=== PATIENT | male | born 1980 | race Caucasian/White ===

== ENCOUNTER 2017-08-27 14:20 | Emergency (ER) | payer SELFPAY ==
[2017-08-27 14:26] VITALS: BP 133/82
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
[2017-08-27] MEDS ORDERED: HYDROCODONE/ACETAMINOPHEN 5-325 MG TABLET PO ONE (15:36)
--- NOTE | 2017-08-27 16:11 | RADIOLOGY REPORT (SQ) ---
EXAM DESCRIPTION: T SPINE AP/LAT COMPLETED DATE/TIME: 08/27/2017 3:59 pm REASON FOR STUDY: NECK PAIN FROM FALL COMPARISON: None. NUMBER OF VIEWS: Two views. TECHNIQUE: AP and lateral radiographic images acquired of the thoracic spine. LIMITATIONS: None. FINDINGS: MINERALIZATION: Normal. ALIGNMENT: Normal. No scoliosis. VERTEBRAE: No fracture or bone lesion. Maintained height, normal segmentation. DISCS: No significant loss of height or significant narrowing. No large osteophytes. HARDWARE: None in the spine. MEDIASTINUM AND SOFT TISSUES: Normal heart size and aortic contour. No soft tissue abnormality. VISUALIZED LUNG RIVAS: Clear. OTHER: No other significant finding. IMPRESSION: NO SIGNIFICANT RADIOGRAPHIC FINDING IN THE THORACIC SPINE. TECHNICAL DOCUMENTATION: JOB ID: [id number] [employer]- All Rights Reserved
--- NOTE | 2017-08-27 16:11 | RADIOLOGY REPORT (SQ) ---
EXAM DESCRIPTION: CERV SP 3 VIEW OR LESS COMPLETED DATE/TIME: 08/27/2017 3:59 pm REASON FOR STUDY: NECK PAIN FROM FALL COMPARISON: None. NUMBER OF VIEWS: Three views. TECHNIQUE: AP, lateral and odontoid radiographic images acquired of the cervical spine. LIMITATIONS: None. FINDINGS: MINERALIZATION: Normal. ALIGNMENT: Anatomic. VERTEBRAE: Vertebral bodies of normal height. DISCS: No significant disc space narrowing. No large osteophytes. HARDWARE: None in the spine. SOFT TISSUES: No masses or calcifications. Lung apices clear. OTHER: No other significant finding. IMPRESSION: NO SIGNIFICANT RADIOGRAPHIC FINDING IN THE CERVICAL SPINE. TECHNICAL DOCUMENTATION: JOB ID: [id number] [employer]- All Rights Reserved
== END 2017-08-27 17:00 | disposition home or self-care (01) ==
LOC: ER 14:20
DX: S16.1XXA Strain of muscle, fascia and tendon at neck level, initial encounter (principal); M54.2 Cervicalgia; W11.XXXA Fall on and from ladder, initial encounter; F17.210 Nicotine dependence, cigarettes, uncomplicated
CPT/HCPCS: 72040; 72070; 99283

== ENCOUNTER 2017-11-15 10:20 | Emergency (ER) | payer OTHER ==
[2017-11-15 10:36] VITALS: BP 123/89
--- NOTE | 2017-11-15 10:54 | ER Document Report ---
ED Skin Rash/Insect Bite/Abscs - General Chief Complaint: Rash Stated Complaint: POSSIBLE RASH Mode of Arrival: Ambulatory Information source: Patient TRAVEL OUTSIDE OF THE [place] IN LAST 30 DAYS: No - HPI Patient complains to provider of: Skin rash/lesion Onset: Other - 8 months Onset/Duration: Gradual Quality of pain: No pain Severity: Mild Skin Character: Blanching, Erythema Skin Temperature: Warm Quality of rash: Itchy Identify cause: No Notes: Patient arrives with complaint of rash to his chest back and upper arms for the last 8 months. States that is there every day. It is red. It is itchy. He denies any pain to it. He denies any new soaps, detergents, lotions, medications. His only medical problems is kidney tumors which he reports to me as being benign. He is on no daily medications. He has tried switching laundry detergents, soaps without any change in the rash. He denies any difficulty breathing or swallowing. He has not been seen for this rash in the past. He does not have a primary care physician at this time. He denies any nausea, vomiting, diarrhea. No chest pain or shortness of breath. Patient has no other current complaints at this time. - Related Data Allergies/Adverse Reactions: No Known Allergies Allergy (Verified 08/27/17 14:24) Past Medical History - Social History Smoking Status: Current Every Day Smoker Chew tobacco use (# tins/day): No Frequency of alcohol use: None Drug Abuse: None Family History: Reviewed & Not Pertinent Patient has suicidal ideation: No Patient has homicidal ideation: No Renal/ Medical History: Denies: Hx Peritoneal Dialysis - Immunizations Immunizations up to date: No Hx Diphtheria, Pertussis, Tetanus Vaccination: No Review of Systems - Review of Systems -: Yes All other systems reviewed and negative Physical Exam - Vital signs Vitals: Temp Pulse Resp BP Pulse Ox 98.6 F 75 16 123/89 H 97 11/15/17 10:34 11/15/17 10:34 11/15/17 10:34 11/15/17 10:34 11/15/17 10:34 - Notes Notes: GENERAL: alert, cooperative, nontoxic, no distress. HEAD: normocephalic, atraumatic EYES: conjunctiva pink without discharge, no external redness or swelling. EARS: no external swelling, no external redness NOSE: atraumatic, no external swelling MOUTH/THROAT: mucous membranes moist and pink. No intraoral lesions noted. No sloughing of oral mucosa. NECK: soft, supple, full range of motion, no meningismus. CHEST: no distress, lungs clear and equal throughout. No wheezing, rales, rhonchi. CARDIAC: regular rate and rhythm, no murmur, normal capillary refill, normal pulses. BACK: full range of motion, no CVA tenderness. EXTREMITIES: full range of motion of all extremities. No redness, no swelling. NEURO: alert and oriented 3, no focal deficits, full range of motion of all extremities. PYSCH: appropriate mood, affect. Patient is cooperative. SKIN: pink, warm, dry. Patient is noted to have a red coalescing urticarial type rash to the chest, abdomen, back, upper arms. The rash blanches easily. No petechiae or vesicles. No tenderness. No target lesions. Course - Re-evaluation Re-evalutation: 11/15/17 10:51 Patient is nontoxic appearing with stable vitals. Patient arrives with complaint of a red itchy rash that has been present for 8 months. Nothing in particular seems to make it better or worse. He has never been seen or treated for this rash. He has a nonspecific urticarial type rash to the chest, back, upper arms. No vesicles or petechiae. Is otherwise healthy. Due to the chronicity of this rash, it is difficult to determine the exact cause of the rash. It is possible that it could be allergic reaction to an unknown cause. Other differentials would include lupus, other autoimmune diseases. This point the patient is nontoxic appearing. I will discharge the patient home on prednisone. He was instructed to take [id number] antihistamines. He will be referred to primary care as well as dermatology for further investigation of this chronic rash. He is instructed to follow up sooner if he develops worsening symptoms, difficulty breathing or swallowing, or has any further concerns. Rash has no characteristics of obvious life-threatening rashes such as [place] spotted fever, Woodson-Bruce syndrome, meningococcemia. The patient is noted to have elevated blood pressure during today's emergency department visit. The patient was informed of this finding. The patient was instructed that this may be related to pre-hypertension and requires further evaluation with a primary care provider. The patient has no hypertensive symptoms at this time. The patient's emergency department workup and current diagnosis were explained to the patient and or family. Follow-up instructions were provided. Medications if prescribed were discussed. Instructions for when to return to the emergency department including specific worrisome symptoms were discussed with the patient and/or family. - Vital Signs Vital signs: Temp Pulse Resp BP Pulse Ox 98.6 F 75 16 123/89 H 97 11/15/17 10:34 11/15/17 10:34 11/15/17 10:34 11/15/17 10:34 11/15/17 10:34 Discharge - Discharge Clinical Impression: Chronic urticaria Condition: Stable Disposition: HOME, SELF-CARE Instructions: Acute Urticaria ([facility]) Additional Instructions: Take medications as prescribed. Take 10 mg of [id number] Claritin in the morning and 25 mg of [id number] Benadryl at night for itching. 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 Follow-up sooner for increasing symptoms, high fever, difficulty breathing or swallowing, chest pain, shortness of breath, any further concerns. Your blood pressure was elevated during today's visit. Have this rechecked with your doctor. Prescriptions: Prednisone [Deltasone 20 mg Tablet] 3 tab PO DAILY 5 Days tablet Forms: Elevated Blood Pressure Referrals: [facility] [Provider Group] - Follow up as needed [facility] [Provider Group] - Follow up as needed
== END 2017-11-15 11:09 | disposition home or self-care (01) ==
LOC: ER 10:20
DX: L50.8 Other urticaria (principal); R03.0 Elevated blood-pressure reading, without diagnosis of hypertension; D30.00 Benign neoplasm of unspecified kidney; F17.200 Nicotine dependence, unspecified, uncomplicated
CPT/HCPCS: 99282

== ENCOUNTER 2019-02-12 08:24 | Emergency (ER) | payer SELFPAY ==
--- NOTE | 2019-02-12 10:08 | ER Document Report ---
HPI - HPI Time Seen by Provider: 02/12/19 09:29 Pain Level: 5 Context: Patient is a 38-year-old male with poor dentition who presents emergency permit with a chief complaint of tooth pain to tooth #32. He states that for the past 4 days he has not been able to eat very well. He has not seen a dentist in a very long time. He has cavities noted to every tooth in his mouth. His past medical history includes kidney tumors, that are benign. He was told before that he needs to have all his teeth removed, but recently he has had worsening tooth pain. Denies any fever, chills, body aches, sore throat, abdominal pain, chest pain, or cough. - CONSTITUTIONAL Constitutional: DENIES: Fever, Chills - EENT EENT: DENIES: Eye problems Notes: Tooth pain - NEURO Neurology: DENIES: Headache, Weakness, Vision blurred - CARDIOVASCULAR Cardiovascular: DENIES: Chest pain - RESPIRATORY Respiratory: DENIES: Trouble Breathing, Coughing - GASTROINTESTINAL Gastrointestinal: DENIES: Abdominal Pain, Black / Bloody Stools - URINARY Urinary: DENIES: Dysuria, Urgency, Frequency - REPRODUCTIVE Reproductive: DENIES: : - MUSCULOSKELETAL Musculoskeletal: DENIES: Extremity pain Past Medical History - Social History Smoking Status: Never Smoker Chew tobacco use (# tins/day): No Frequency of alcohol use: None Drug Abuse: None Family History: Reviewed & Not Pertinent Patient has suicidal ideation: No Patient has homicidal ideation: No Renal/ Medical History: Denies: Hx Peritoneal Dialysis - Immunizations Immunizations up to date: No Hx Diphtheria, Pertussis, Tetanus Vaccination: No Vertical Provider Document - CONSTITUTIONAL Agree With Documented VS: Yes Exam Limitations: No Limitations General Appearance: No Apparent Distress - INFECTION CONTROL TRAVEL OUTSIDE OF THE [place] IN LAST 30 DAYS: No - HEENT HEENT: Atraumatic, Normocephalic, PERRLA. negative: Pharyngeal Exudate, Pharyngeal Tenderness, Pharyngeal Erythema, Tympanic Membrane Red Notes: Dental caries noted to all teeth in his mouth. - NECK Neck: Normal Inspection - RESPIRATORY Respiratory: Breath Sounds Normal, No Respiratory Distress - CARDIOVASCULAR Cardiovascular: Regular Rate, Regular Rhythm Pulses: Normal: Radial - MUSCULOSKELETAL/EXTREMETIES Musculoskeletal/Extremeties: FROM - NEURO Level of Consciousness: Awake, Alert, Appropriate Motor/Sensory: No Motor Deficit, No Sensory Deficit - DERM Integumentary: Warm, Dry, No Rash Course - Re-evaluation Re-evalutation: 02/12/19 10:10 Patient's physical exam and history is most consistent with a infected tooth. Patient is able to swallow, no facial swelling noted, airways pain, vital signs are normal. I do not suspect Ramón's angina, apical abscess, or airway obstruction. The patient will be started on oral antibiotics. I have given the patient education on their antibiotics. Patient was given instructions to follow-up with a dentist this week. Return precautions were given. Verbal discharge instructions were given. Patient verbalized understanding. Patient is stable for discharge. - Vital Signs Vital signs: Temp Pulse Resp BP Pulse Ox 98.4 F 72 19 131/90 H 98 02/12/19 08:32 02/12/19 08:32 02/12/19 08:32 02/12/19 08:32 02/12/19 08:32 Discharge - Discharge Clinical Impression: Toothache Condition: Stable Disposition: HOME, SELF-CARE Instructions: Penicillin V K ([facility]), Toothache ([facility]) Additional Instructions: You have been seen in the emergency department for a toothache. You may take ibuprofen 600 mg and Tylenol 1000 mg every 6 hours as needed for the pain. You have also been given topical lidocaine. Placed that to the affected tooth as needed to help with pain. You have also been prescribed antibiotics. Please take the antibiotics as prescribed, even if you start to feel better. If you develop a fever greater than 100.4 F, or have any symptoms that are worrisome to you, please return to the emergency department. Please follow-up with a dentist this week in regards to your visit. [facility] [phone] Make an appointment today. Prescriptions: Penicillin V Potassium [Penicillin Vk 500 mg Tablet] 500 mg PO QID #40 tablet
[2019-02-12] MEDS ORDERED: LIDOCAINE 2% VISCOUS SOLN 20 ML UDCUP PO ONE (10:12)
[2019-02-12 10:24] VITALS: BP 128/90
== END 2019-02-12 10:26 | disposition home or self-care (01) ==
LOC: ER 08:24
DX: K08.89 Other specified disorders of teeth and supporting structures (principal); K02.9 Dental caries, unspecified
CPT/HCPCS: 99282; J3490